=== PATIENT | female | born 1950 | race Caucasian/White ===

== ENCOUNTER 2017-12-19 18:10 | Emergency (ER) | payer MEDICARE, OTHER ==
[~2017-12-19] VITALS: Ht 167.6 cm; Wt 88.6 kg
[~2017-12-19 18:10] MED LIST: AMBIEN10 MG OR; AMILOR/HCTZ1 TAB OR; AMILORIDE HCL5 MG PO; AMOXICILLIN500 MG PO; BACLOFEN10 MG PO; BENTYL20 MG OR; BUSPIRONE5 MG PO; CYMBALTA30 MG OR; DICLOFENAC75 MG PO; FIORICET PO; FOLIC ACID1 MG PO; GABAPENTIN600 MG PO; HYDROCHLOROT25 MG PO; METHOTREXATE2.5 M1 OR; NEXIUM40 M1 PO; NORCO1 TA1 PO; PREDNISONE5 MG OR; PROMETHAZINE25 MG OR; VALACYCLOVIR H500 MG PO; VENLAFAXINE HCL75 M1 PO; ZOLPIDEM5 M1 PO
[2017-12-19 20:49] LABS: HEMATOCRIT 37.9 % (37.0-47.0); HEMOGLOBIN 12.2 g/dl (12.0-16.0); IMMATURE GRANULOCYTES 0.2 % (0.0-1.0); MEAN CELL VOLUME 85.6 fL CALC (80.0-100.0); MEAN CORPUSCULAR HGB 27.5 pG CALC (26.0-32.0); MEAN CORPUSCULAR HGB CONC 32.2 g/L CALC (32.0-36.0); NEUT# 2.23 thou/uL (2.00-7.15); RED BLOOD COUNT 4.43 mill/uL (4.20-5.60); RED CELL DISTRI WIDTH 15.9 % (11.5-15.5)
[2017-12-19 20:58] LABS: ANION GAP 17 (6-22 (CALC)); BUN 27 mg/dL (8-23); BUN/CREATININE RATIO 29 (12-20 (CALC)); CARBON DIOXIDE 27 mmol/l (22-30); CHLORIDE 104 mmol/l (95-108); GFR 55 ML/MIN (>=60 (CALC)); GFR FOR AFR.AMER. > 60 ML/MIN (>=60 (CALC)); SODIUM 143 mmol/l (137-146)
[2017-12-19 22:40] VITALS: BP 209/93
== END 2017-12-19 22:58 | disposition short-term general hospital (02) ==
LOC: ED 18:10
PROVIDERS: Family Medicine
DX: G45.9 Transient cerebral ischemic attack, unspecified (principal); R29.810 Facial weakness; R20.0 Anesthesia of skin; R51 Headache; M79.7 Fibromyalgia; K21.9 Gastro-esophageal reflux disease without esophagitis; Z85.9 Personal history of malignant neoplasm, unspecified